=== PATIENT | female | born 1975 | race Caucasian/White ===

== ENCOUNTER 2021-10-03 13:24 | Emergency (ER) | payer OTHER ==
[~2021-10-03] VITALS: Ht 160 cm; Wt 68.0 kg
[2021-10-03] MEDS ORDERED: ACETAMINOPHEN ES 500 MG TABLET PO ONE (14:30)
[2021-10-03] MEDS ORDERED: IBUPROFEN 600 MG TABLET PO ONE (14:30)
--- NOTE | 2021-10-03 14:32 | NUR ---
signed waiver. stated LMP was 2020
--- NOTE | 2021-10-03 14:51 | NUR ---
wheeled out via [facility] by Jajah for ct scan
[2021-10-03] MEDS ORDERED: ACETAMINOPHEN ES 500 MG TABLET ONE (15:12)
[2021-10-03] MEDS ORDERED: IBUPROFEN 600 MG TABLET ONE (15:13)
--- NOTE | 2021-10-03 15:13 | NUR ---
patient back to room from ct scan
[2021-10-03] MEDS ORDERED: IBUP-1957 PO (15:26)
[2021-10-03 15:45] VITALS: BP 150/102
--- NOTE | 2021-10-03 15:45 | NUR ---
Patient discharged to home in stable condition. Written and verbal after care instructions given. Patient verbalizes understanding of instruction.
== END 2021-10-03 15:46 | disposition home or self-care (01) ==
LOC: ER 13:34
DX: S13.4XXA Sprain of ligaments of cervical spine, initial encounter (principal); M25.511 Pain in right shoulder; V43.52XA Car driver injured in collision with other type car in traffic accident, initial encounter; Y93.89 Activity, other specified; Y92.410 Unspecified street and highway as the place of occurrence of the external cause; Y99.8 Other external cause status
CPT/HCPCS: 71045-TC; 72125-TC; 73030-TC